=== PATIENT | male | born 1950 | race Caucasian/White ===

== ENCOUNTER 2018-09-28 15:53 | Emergency (ER) | payer MEDICARE, SELFPAY ==
[~2018-09-28] VITALS: Ht 172.7 cm; Wt 74.0 kg
[~2018-09-28 15:53] MED LIST: ADV50500 IH; ALBU18HF2 IH; ALBU2.5V13 NEB; ALBU8.5H8 INH; COMIN IH; FLO0.4C PO; ONDA4TAB59 PO; PRED1TAB PO; PRED20TA PO; SPIIN INH; ZOLP5TAB8 PO
[2018-09-28 16:00] VITALS: BP 144/98
[2018-09-28] MEDS ORDERED: HYDROcodone/acetaminophen 10/325mg tab PO ONE (17:35)
[2018-09-28] MEDS ORDERED: ACYC-202 PO (17:43)
[2018-09-28] MEDS ORDERED: GABA-532 PO (17:43)
== END 2018-09-28 18:14 | disposition home or self-care (01) ==
LOC: ER 15:53
DX: B02.9 Zoster without complications (principal); K21.9 Gastro-esophageal reflux disease without esophagitis; J44.9 Chronic obstructive pulmonary disease, unspecified; Z90.49 Acquired absence of other specified parts of digestive tract; Z98.890 Other specified postprocedural states; Z59.0 Homelessness; Z79.2 Long term (current) use of antibiotics; Z79.899 Other long term (current) drug therapy
CPT/HCPCS: 99283

== ENCOUNTER 2018-12-02 01:03 | Emergency (ER) | payer MEDICARE ==
[~2018-12-02] VITALS: Ht 172.7 cm; Wt 60.0 kg
[~2018-12-02 01:03] MED LIST changes: +GABA-532 PO
[2018-12-02 02:02] LABS: ALANINE AMINOTRANSFERASE 13 U/L (12-78); ALBUMIN 3.2 G/DL (3.4-5.0); ALBUMIN/GLOBULIN RATIO 1.1 (1.1-1.5); ALKALINE PHOSPHATASE 71 IU/L (46-116); AMYLASE 57 U/L (25-115); ANION GAP 12 (8-16); ASPARTATE AMINO TRANSFERASE 10 U/L (10-37); BILIRUBIN,TOTAL 0.6 MG/DL (0.1-1.0); BLOOD UREA NITROGEN 19 MG/DL (7-18); BUN/CREATININE RATIO 16.2 (5.4-32.0); CALCIUM 8.5 MG/DL (8.5-10.1); CHLORIDE 109 MMOL/L (99-107); CREATININE 1.17 MG/DL (0.60-1.10); GLUCOSE 96 MG/DL (70-104); LIPASE 65 U/L (73-393); POTASSIUM 3.6 MMOL/L (3.5-5.1); SODIUM 142 MMOL/L (135-145); TOTAL CARBON DIOXIDE 21.4 MMOL/L (24-32); eGFR 62 ML/MIN
[2018-12-02] MEDS ORDERED: ondansetron/PF 4mg/2ml inj IV ONE ×2 (02:10→06:05)
[2018-12-02] MEDS ORDERED: normal saline 1000ML IV soln IVB ONE (02:10)
[2018-12-02] MEDS: morphine 4 MG/ML inj SYRINge IV PRN ×2 (02:16→04:09)
[2018-12-02 02:23] LABS: BASOPHILS # (AUTO) 0.1 X10'3 (0-0.2); BASOPHILS % (AUTO) 0.7 % (0-1); EOSINOPHILS % (AUTO) 0.1 % (0-6); HEMATOCRIT 44.3 % (42.0-52.0); HEMOGLOBIN 15.2 g/dl (14.0-17.9); LYMPHOCYTES # (AUTO) 2.3 X10'3 (1.1-4.8); LYMPHOCYTES % (AUTO) 16.5 % (21-51); MEAN CORPUSCULAR HEMOGLOBIN 31.3 PG (27.0-31.0); MEAN CORPUSCULAR HGB CONC 34.4 g/dL (33.0-36.5); MEAN PLATELET VOLUME 9.1 FL (7.4-10.4); MONOCYTES # (AUTO) 1.3 X10'3 (0-0.9); MONOCYTES % (AUTO) 8.8 % (2-12); NEUTROPHILS # (AUTO) 10.5 X10'3 (1.8-7.7); NEUTROPHILS % (AUTO) 73.9 % (42-75); PLATELET COUNT 240 X10'3 (140-440); RED BLOOD COUNT 4.87 X10'6 (4.70-6.10); WHITE BLOOD COUNT 14.2 X10'3 (4.5-11.0)
[2018-12-02 03:35] LABS: CLARITY,URINE SLIGHTLY CLOUDY (Clear); COLOR,URINE YELLOW (Yellow); GLUCOSE, URINE NEGATIVE (Neg); KETONES,URINE 40 mg/dl (Neg); LEUKOCYTE ESTERASE ,URINE NEGATIVE (Neg); NITRITES, URINE NEGATIVE (Neg); OCCULT BLOOD,URINE SMALL (Neg); PROTEIN,URINE NEGATIVE (Neg); UROBILINOGEN,URINE 0.2 E.U/dL (0.2-1.0)
[2018-12-02 03:36] LABS: UA COLLECTION TYPE VOIDED
[2018-12-02 03:45] LABS: BACTERIA,URINE NONE SEEN /HPF (Neg); CAL OXALATE CRYSTALS 3+ /HPF (NEGATIVE); MUCUS STRANDS MANY /LPF (Neg); RBC,URINE 0-2 /HPF (0-2); SQUAMOUS EPITHELIAL CELL,UR NONE SEEN /LPF (FEW); WBC,URINE NONE SEEN /HPF (0-4)
[2018-12-02] MEDS ORDERED: ketorolac trometh. 30mg/ml inj. IV ONE (04:25)
[2018-12-02] MEDS ORDERED: HYDR-4384 PO (04:30)
[2018-12-02] MEDS ORDERED: IBUP-1984 PO (04:30)
[2018-12-02] MEDS ORDERED: FLO0.4C PO (04:30)
[2018-12-02] MEDS ORDERED: morphine 4 MG/ML inj SYRINge IV ONE (04:50)
--- NOTE | 2018-12-02 06:14 | NUR ---
was transporting pt to lobby for discharge when patient started vommiting continuously. brought pt back to room and will notify md and oncoming nurse
[2018-12-02] MEDS ORDERED: ONDA4TAB6 PO (06:19)
[2018-12-02 06:24] VITALS: BP 165/98
== END 2018-12-02 06:40 | disposition home or self-care (01) ==
LOC: ER 01:03
DX: N20.0 Calculus of kidney (principal); J44.9 Chronic obstructive pulmonary disease, unspecified; K21.9 Gastro-esophageal reflux disease without esophagitis; Z90.49 Acquired absence of other specified parts of digestive tract; Z98.890 Other specified postprocedural states; Z59.0 Homelessness; Z79.899 Other long term (current) drug therapy
CPT/HCPCS: 36415; 74176; 80053; 81001; 82150; 83690; 85025; 85610; 96374; 96375; 96376; 99284; J1885; J2270; J2405; J7030

== ENCOUNTER 2018-12-06 17:48 | Emergency (ER) | payer MEDICARE ==
[~2018-12-06] VITALS: Ht 172.7 cm; Wt 72.7 kg
[~2018-12-06 17:48] MED LIST changes: +HYDR-4384 PO; +IBUP-1984 PO; +ONDA4TAB6 PO
[2018-12-06] MEDS ORDERED: morphine 4 MG/ML inj SYRINge IV PRN (18:00)
[2018-12-06] MEDS ORDERED: ondansetron/PF 4mg/2ml inj IV ONE (18:00)
[2018-12-06] MEDS ORDERED: normal saline 1000ML IV soln IVB ONE (18:00)
[2018-12-06 18:51] LABS: BASOPHILS # (AUTO) 0.1 X10'3 (0-0.2); BASOPHILS % (AUTO) 0.6 % (0-1); EOSINOPHILS % (AUTO) 0 % (0-6); HEMATOCRIT 45.4 % (42.0-52.0); HEMOGLOBIN 15.9 g/dl (14.0-17.9); LYMPHOCYTES # (AUTO) 1.1 X10'3 (1.1-4.8); LYMPHOCYTES % (AUTO) 10.7 % (21-51); MEAN CORPUSCULAR HEMOGLOBIN 31.8 PG (27.0-31.0); MEAN CORPUSCULAR HGB CONC 35.1 g/dL (33.0-36.5); MEAN CORPUSCULAR VOLUME 90.5 FL (78-98); MEAN PLATELET VOLUME 8.2 FL (7.4-10.4); MONOCYTES # (AUTO) 0.9 X10'3 (0-0.9); MONOCYTES % (AUTO) 9.2 % (2-12); NEUTROPHILS # (AUTO) 7.9 X10'3 (1.8-7.7); NEUTROPHILS % (AUTO) 79.5 % (42-75); PLATELET COUNT 245 X10'3 (140-440); RED BLOOD COUNT 5.02 X10'6 (4.70-6.10)
[2018-12-06 19:03] LABS: ALANINE AMINOTRANSFERASE 19 U/L (12-78); ALBUMIN 3.5 G/DL (3.4-5.0); ALKALINE PHOSPHATASE 75 IU/L (46-116); ANION GAP 12 (8-16); ASPARTATE AMINO TRANSFERASE 19 U/L (10-37); BILIRUBIN,TOTAL 0.7 MG/DL (0.1-1.0); BLOOD UREA NITROGEN 16 MG/DL (7-18); BUN/CREATININE RATIO 11.9 (5.4-32.0); CALCIUM 9.6 MG/DL (8.5-10.1); CHLORIDE 102 MMOL/L (99-107); CREATININE 1.35 MG/DL (0.60-1.10); GLUCOSE 107 MG/DL (70-104); POTASSIUM 3.7 MMOL/L (3.5-5.1); SODIUM 137 MMOL/L (135-145); TOTAL CARBON DIOXIDE 23.5 MMOL/L (24-32); eGFR 52 ML/MIN
[2018-12-06 20:29] LABS: CLARITY,URINE CLOUDY (Clear); COLOR,URINE AMBER (Yellow); GLUCOSE, URINE NEGATIVE (Neg); KETONES,URINE >=80 mg/dl (Neg); LEUKOCYTE ESTERASE ,URINE NEGATIVE (Neg); NITRITES, URINE NEGATIVE (Neg); OCCULT BLOOD,URINE LARGE (Neg); PROTEIN,URINE TRACE mg/dl (Neg)
[2018-12-06 20:36] LABS: UA COLLECTION TYPE STRAIGHT CATH
[2018-12-06 20:39] LABS: BACTERIA,URINE 1+ /HPF (Neg); MUCUS STRANDS FEW /LPF (Neg); RBC,URINE 50-100 /HPF (0-2); SQUAMOUS EPITHELIAL CELL,UR MODERATE /LPF (FEW); TRANSITIONAL EPI CELLS,URINE FEW /HPF; WBC,URINE 0-4 /HPF (0-4)
[2018-12-06 20:40] LABS: RENAL CELLS, URINE FEW /HPF
[2018-12-06] MEDS ORDERED: PER10325T PO (20:49)
[2018-12-06] MEDS ORDERED: oxyCODONE/APAP 10/325mg tablet PO ONE (20:55)
[2018-12-06 21:12] VITALS: BP 152/96
== END 2018-12-06 21:13 | disposition home or self-care (01) ==
LOC: ER 17:49
DX: N20.1 Calculus of ureter (principal); J44.9 Chronic obstructive pulmonary disease, unspecified; K21.9 Gastro-esophageal reflux disease without esophagitis; Z59.0 Homelessness; Z90.49 Acquired absence of other specified parts of digestive tract; Z79.899 Other long term (current) drug therapy
CPT/HCPCS: 36415; 80053; 81001; 85025; 96374; 96375; 99284; J2270; J2405; J7030; P9612

== ENCOUNTER 2020-01-13 10:39 | Inpatient (IN) | payer MEDICARE ==
[~2020-01-13] VITALS: Ht 172.7 cm; Wt 77.3 kg
[~2020-01-13 10:39] MED LIST changes: -HYDR-4384 PO; -IBUP-1984 PO
[2020-01-13] MEDS ORDERED: morphine 4 MG/ML inj SYRINge IM ONE ×2 (11:05→11:45)
[2020-01-13] MEDS ORDERED: HYDROcodone/acetaminophen 10/325mg tab PO ONE (11:05)
[2020-01-13] MEDS ORDERED: ondansetron/PF 4mg/2ml inj IV ONE ×2 (12:15→14:35)
[2020-01-13] MEDS ORDERED: albuterol 2.5 MG/3 ML nebule NEB ONE (12:15)
[2020-01-13 12:53] LABS: BASOPHILS # (AUTO) 0.1 X10'3 (0-0.2); BASOPHILS % (AUTO) 1.1 % (0-1); EOSINOPHILS % (AUTO) 0.2 % (0-6); HEMATOCRIT 48.6 % (42.0-52.0); HEMOGLOBIN 16.4 g/dl (14.0-17.9); LYMPHOCYTES # (AUTO) 2.8 X10'3 (1.1-4.8); LYMPHOCYTES % (AUTO) 24.4 % (21-51); MEAN CORPUSCULAR HEMOGLOBIN 30.1 PG (27.0-31.0); MEAN CORPUSCULAR HGB CONC 33.7 g/dL (33.0-36.5); MEAN CORPUSCULAR VOLUME 89.4 FL (78-98); MEAN PLATELET VOLUME 8.5 FL (7.4-10.4); MONOCYTES # (AUTO) 0.9 X10'3 (0-0.9); MONOCYTES % (AUTO) 7.7 % (2-12); NEUTROPHILS # (AUTO) 7.6 X10'3 (1.8-7.7); NEUTROPHILS % (AUTO) 66.6 % (42-75); PLATELET COUNT 250 X10'3 (140-440); RED BLOOD COUNT 5.43 X10'6 (4.70-6.10); RED CELL DISTRIBUTION WIDTH 14.3 % (11.5-14.5); WHITE BLOOD COUNT 11.4 X10'3 (4.5-11.0)
[2020-01-13 13:04] LABS: ALANINE AMINOTRANSFERASE 20 U/L (12-78); ALBUMIN 3.5 G/DL (3.4-5.0); ALKALINE PHOSPHATASE 185 IU/L (46-116); ANION GAP 12 (8-16); ASPARTATE AMINO TRANSFERASE 21 U/L (10-37); BILIRUBIN,TOTAL 1.2 MG/DL (0.1-1.0); BLOOD UREA NITROGEN 26 MG/DL (7-18); BUN/CREATININE RATIO 18.2 (5.4-32.0); CALCIUM 9.5 MG/DL (8.5-10.1); CHLORIDE 107 MMOL/L (99-107); CREATININE 1.43 MG/DL (0.60-1.10); GLUCOSE 109 MG/DL (70-104); LIPASE < 50 U/L (73-393); POTASSIUM 3.4 MMOL/L (3.5-5.1); SODIUM 139 MMOL/L (135-145); TOTAL CARBON DIOXIDE 19.8 MMOL/L (24-32); TOTAL PROTEIN 6.9 G/DL (6.4-8.2); eGFR 49 ML/MIN
[2020-01-13] MEDS ORDERED: normal saline 1000ML IV soln IVB ONE (13:10)
--- NOTE | 2020-01-13 14:34 | NUR ---
Dr. paiz at bedside.
[2020-01-13] MEDS ORDERED: magnesium hydroxide 30ml (MOM) UD suspension PO PRN ×2 (14:40→14:50)
[2020-01-13] MEDS ORDERED: acetaminophen 325mg tablet PO PRN ×2 (14:40)
[2020-01-13] MEDS ORDERED: morphine 2 MG/ML inj. syringe IV PRN (14:40)
[2020-01-13] MEDS ORDERED: mag hydrox/Alum hydrox/simeth 30ml oral suspension PO PRN (14:40)
[2020-01-13] MEDS ORDERED: HYDROcodone/acetaminophen 5mg/325mg tablet PO PRN (14:40)
[2020-01-13] MEDS ORDERED: CHOL20002 PO (14:55)
[2020-01-13] MEDS ORDERED: CYAN-51 PO (14:55)
[2020-01-13] MEDS ORDERED: PRE5T PO (14:58)
--- NOTE | 2020-01-13 15:40 | NUR ---
received report from brush maker machine
--- NOTE | 2020-01-13 17:06 | NUR ---
sent a page to hospitalist to address pt low k and elevated blood pressure, no new orders at this time, continue to monitor
[2020-01-13 17:18] VITALS: BP 190/109
[2020-01-13] MEDS ORDERED: potassium CL 10mEq/100ml bag 100 ML IV PRN ×2 (17:25)
[2020-01-13] MEDS ORDERED: potassium Cl 20 mEq SR tablet PO PRN ×2 (17:25)
[2020-01-13] MEDS: ondansetron/PF 4mg/2ml inj IV PRN ×2 (17:38→23:17)
[2020-01-13] MEDS: baclofen 10mg tablet PO PRN (17:44)
[2020-01-13 18:00] VITALS: BP 178/116
--- NOTE | 2020-01-13 18:14 | NUR ---
gave report to june,
[2020-01-13] MEDS: sennosides/docusate sodium tablet PO SCH (20:00)
[2020-01-13] MEDS: K and/or MAG REPLACEMENT MC SCH (20:00)
[2020-01-13] MEDS: HYDROcodone/acetaminophen 10/325mg tab PO PRN (22:43)
[2020-01-13] MEDS: ipratropium/albuterol 3ml nebule NEB PRN (23:32)
[2020-01-14] MEDS: HYDROcodone/acetaminophen 10/325mg tab PO PRN (05:36)
--- NOTE | 2020-01-14 06:00 | NUR ---
Patient in room [facility]TH[facility] 4023. I have received report from June and had the opportunity to ask questions and assume patient care.
[2020-01-14 06:28] LABS: BASOPHILS % (AUTO) 0.6 % (0-1); EOSINOPHILS % (AUTO) 0.3 % (0-6); HEMATOCRIT 46.8 % (42.0-52.0); LYMPHOCYTES # (AUTO) 1.6 X10'3 (1.1-4.8); LYMPHOCYTES % (AUTO) 21.5 % (21-51); MEAN CORPUSCULAR HEMOGLOBIN 30.8 PG (27.0-31.0); MEAN CORPUSCULAR HGB CONC 34.1 g/dL (33.0-36.5); MEAN CORPUSCULAR VOLUME 90.1 FL (78-98); MEAN PLATELET VOLUME 8.2 FL (7.4-10.4); MONOCYTES # (AUTO) 0.8 X10'3 (0-0.9); MONOCYTES % (AUTO) 10.4 % (2-12); NEUTROPHILS # (AUTO) 5.1 X10'3 (1.8-7.7); NEUTROPHILS % (AUTO) 67.2 % (42-75); PLATELET COUNT 219 X10'3 (140-440); RED BLOOD COUNT 5.19 X10'6 (4.70-6.10); RED CELL DISTRIBUTION WIDTH 14.2 % (11.5-14.5); WHITE BLOOD COUNT 7.5 X10'3 (4.5-11.0)
[2020-01-14 06:44] LABS: ALBUMIN 3.3 G/DL (3.4-5.0); ANION GAP 14 (8-16); BLOOD UREA NITROGEN 25 MG/DL (7-18); BUN/CREATININE RATIO 16.7 (5.4-32.0); CALCIUM 9.2 MG/DL (8.5-10.1); CHLORIDE 105 MMOL/L (99-107); GLUCOSE 88 MG/DL (70-104); POTASSIUM 3.9 MMOL/L (3.5-5.1); SODIUM 141 MMOL/L (135-145); TOTAL CARBON DIOXIDE 22.3 MMOL/L (24-32); eGFR 46 ML/MIN
[2020-01-14 07:11] VITALS: BP_SYST 139; BP_SYST 172; BP_DIAS 103; BP_DIAS 124
[2020-01-14] MEDS: enoxaparin 40mg/0.4ml syringe SUBCUT SCH (08:00)
[2020-01-14] MEDS: K and/or MAG REPLACEMENT MC SCH ×2 (08:00→20:00)
[2020-01-14] MEDS ORDERED: predniSONE 5mg tablet PO SCH ×2 (08:00→10:45)
[2020-01-14] MEDS: sennosides/docusate sodium tablet PO SCH ×2 (08:26→19:07)
[2020-01-14] MEDS: ondansetron/PF 4mg/2ml inj IV PRN ×2 (08:34→19:07)
[2020-01-14] MEDS: ipratropium/albuterol 3ml nebule NEB PRN (08:47)
[2020-01-14 10:00] VITALS: BP 143/107
--- NOTE | 2020-01-14 10:08 | NUR ---
Page Sent promotional table spacer PAGER ID: [phone] MESSAGE: [phone] Trent Jacob Pt is still having COPD trouble on 5L O2 at 82 after RT saw him. Since pt is nauseous and threw up am prednisone would IV solumedrol order help? #[id number] Julieth
[2020-01-14] MEDS: ipratropium/albuterol 3ml nebule NEB SCH ×2 (11:10→14:32)
[2020-01-14] MEDS: LORazepam 2 mg/ml vial IV PRN (13:05)
[2020-01-14 18:00] VITALS: BP 127/99
--- NOTE | 2020-01-14 18:20 | NUR ---
Patient in room ORTH[facility] 4023. I have received report from EVERT Clancy and had the opportunity to ask questions and assume patient care.
--- NOTE | 2020-01-14 18:22 | NUR ---
Problems reprioritized. Patient report given, questions answered & plan of care reviewed with Vicky LOYD.
[2020-01-14] MEDS: morphine 2 MG/ML inj. syringe IV PRN (19:08)
[2020-01-14 22:00] VITALS: BP 149/103
[2020-01-15] MEDS: morphine 2 MG/ML inj. syringe IV PRN (01:14)
[2020-01-15] MEDS: ondansetron/PF 4mg/2ml inj IV PRN (01:14)
--- NOTE | 2020-01-15 06:27 | NUR ---
Problems reprioritized. Patient report given, questions answered & plan of care reviewed with EVERT Clancy.
[2020-01-15 06:30] VITALS: BP 126/98
--- NOTE | 2020-01-15 06:54 | NUR ---
Patient in room [facility]TH[facility] 4023 B. I have received report from Vicky and had the opportunity to ask questions and assume patient care.
[2020-01-15] MEDS: ipratropium/albuterol 3ml nebule NEB PRN ×3 (07:34→19:56)
[2020-01-15 07:56] LABS: BASOPHILS % (AUTO) 0.5 % (0-1); EOSINOPHILS % (AUTO) 0.3 % (0-6); HEMATOCRIT 49.2 % (42.0-52.0); HEMOGLOBIN 16.7 g/dl (14.0-17.9); LYMPHOCYTES # (AUTO) 1.9 X10'3 (1.1-4.8); LYMPHOCYTES % (AUTO) 26.3 % (21-51); MEAN CORPUSCULAR HEMOGLOBIN 30.6 PG (27.0-31.0); MEAN CORPUSCULAR VOLUME 90.1 FL (78-98); MEAN PLATELET VOLUME 8.8 FL (7.4-10.4); MONOCYTES # (AUTO) 0.9 X10'3 (0-0.9); NEUTROPHILS # (AUTO) 4.2 X10'3 (1.8-7.7); NEUTROPHILS % (AUTO) 59.9 % (42-75); PLATELET COUNT 239 X10'3 (140-440); RED BLOOD COUNT 5.46 X10'6 (4.70-6.10); RED CELL DISTRIBUTION WIDTH 14.2 % (11.5-14.5); WHITE BLOOD COUNT 7.1 X10'3 (4.5-11.0)
[2020-01-15] MEDS: enoxaparin 40mg/0.4ml syringe SUBCUT SCH (08:00)
[2020-01-15] MEDS: sennosides/docusate sodium tablet PO SCH ×2 (08:00→19:26)
[2020-01-15] MEDS: K and/or MAG REPLACEMENT MC SCH ×2 (08:00→20:00)
--- NOTE | 2020-01-15 08:02 | NUR ---
PAGER ID: [phone] MESSAGE: [phone] Trent Jacob RT now hears crackles now in right base yesterday they didn't can we get a chest xray. #[id number] Julieth (116 character message out of a maximum of 240) Close [X] Send Another Page
[2020-01-15] MEDS ORDERED: albuterol 2.5 MG/3 ML nebule NEB PRN (08:05)
[2020-01-15 08:13] LABS: ALBUMIN 3.2 G/DL (3.4-5.0); ANION GAP 16 (8-16); BLOOD UREA NITROGEN 32 MG/DL (7-18); BUN/CREATININE RATIO 18.6 (5.4-32.0); CALCIUM 9.6 MG/DL (8.5-10.1); CHLORIDE 104 MMOL/L (99-107); CREATININE 1.72 MG/DL (0.60-1.10); GLUCOSE 93 MG/DL (70-104); POTASSIUM 4.1 MMOL/L (3.5-5.1); SODIUM 139 MMOL/L (135-145); TOTAL CARBON DIOXIDE 19.5 MMOL/L (24-32); eGFR 40 ML/MIN
[2020-01-15] MEDS ORDERED: bisacodyl 10mg suppository rectal RC PRN (09:05)
[2020-01-15] MEDS ORDERED: oxyCODONE/APAP 5-325mg tablet PO ONE (09:05)
[2020-01-15 09:15] VITALS: BP 140/109
[2020-01-15] MEDS: metoclopramide 5 mg/ml inj IV PRN ×2 (09:57→22:04)
[2020-01-15] MEDS: methylPREDNISolone sod succ/PF 40mg inj. IV SCH ×2 (09:58→23:11)
--- NOTE | 2020-01-15 11:37 | NUR ---
Student documentation: I have reviewed and agree with all interventions, assessments performed and documented by Trent Jacobs.
--- NOTE | 2020-01-15 12:02 | NUR ---
Problems reprioritized. Patient report given,Julieth LOYD questions answered & plan of care reviewed with [].
--- NOTE | 2020-01-15 17:15 | NUR ---
promotional table spacer PAGER ID: [phone] MESSAGE: [phone] Trent Jacob Bp still different on each arm Left arm 140/109 Right Arm 126/98. #[id number] Julieth (104 character message out of a maximum of 240) Close [X]
[2020-01-15 18:00] VITALS: BP 124/100
[2020-01-15 22:00] VITALS: BP 133/105
[2020-01-15] MEDS: oxyCODONE/APAP 5-325mg tablet PO PRN (22:01)
[2020-01-16 06:00] VITALS: BP 143/99
--- NOTE | 2020-01-16 06:35 | NUR ---
Patient in room [facility]TH[facility] 4023. I have received report from Anila and had the opportunity to ask questions and assume patient care.
[2020-01-16] MEDS: oxyCODONE/APAP 5-325mg tablet PO PRN ×2 (06:38→19:10)
[2020-01-16 07:17] LABS: BASOPHILS % (AUTO) 0.5 % (0-1); EOSINOPHILS % (AUTO) 0.1 % (0-6); HEMATOCRIT 48.8 % (42.0-52.0); HEMOGLOBIN 16.6 g/dl (14.0-17.9); LYMPHOCYTES # (AUTO) 0.6 X10'3 (1.1-4.8); LYMPHOCYTES % (AUTO) 10.2 % (21-51); MEAN CORPUSCULAR HEMOGLOBIN 30.4 PG (27.0-31.0); MEAN CORPUSCULAR VOLUME 89.2 FL (78-98); MEAN PLATELET VOLUME 8.7 FL (7.4-10.4); MONOCYTES # (AUTO) 0.3 X10'3 (0-0.9); MONOCYTES % (AUTO) 5.5 % (2-12); NEUTROPHILS # (AUTO) 4.8 X10'3 (1.8-7.7); NEUTROPHILS % (AUTO) 83.7 % (42-75); PLATELET COUNT 226 X10'3 (140-440); RED BLOOD COUNT 5.47 X10'6 (4.70-6.10); RED CELL DISTRIBUTION WIDTH 14.4 % (11.5-14.5); WHITE BLOOD COUNT 5.8 X10'3 (4.5-11.0)
[2020-01-16 07:24] LABS: ALBUMIN 3.1 G/DL (3.4-5.0); ANION GAP 12 (8-16); BLOOD UREA NITROGEN 43 MG/DL (7-18); CALCIUM 9.7 MG/DL (8.5-10.1); CHLORIDE 106 MMOL/L (99-107); CREATININE 1.59 MG/DL (0.60-1.10); GLUCOSE 139 MG/DL (70-104); POTASSIUM 4.6 MMOL/L (3.5-5.1); SODIUM 142 MMOL/L (135-145); TOTAL CARBON DIOXIDE 23.9 MMOL/L (24-32); eGFR 43 ML/MIN
[2020-01-16] MEDS: K and/or MAG REPLACEMENT MC SCH ×2 (08:00→20:00)
[2020-01-16] MEDS: metoclopramide 5 mg/ml inj IV PRN (08:47)
[2020-01-16] MEDS: enoxaparin 40mg/0.4ml syringe SUBCUT SCH (08:54)
[2020-01-16] MEDS: sennosides/docusate sodium tablet PO SCH ×2 (08:54→19:11)
[2020-01-16] MEDS: furosemide 20 MG/2 ML vial IV SCH (08:56)
[2020-01-16] MEDS: methylPREDNISolone sod succ/PF 40mg inj. IV SCH ×2 (08:56→16:30)
[2020-01-16 10:00] VITALS: BP 159/107
[2020-01-16] MEDS: metoclopramide 5 mg/ml inj IV SCH ×2 (15:29→19:11)
[2020-01-16] MEDS: morphine 2 MG/ML inj. syringe IV PRN (15:30)
[2020-01-16 18:00] VITALS: BP 149/111
[2020-01-16] MEDS ORDERED: methylnaltrexone br 12mg/0.6ml inj***SubQ only SQ ONE (18:00)
--- NOTE | 2020-01-16 18:18 | NUR ---
Problems reprioritized. Patient report given, questions answered & plan of care reviewed with
[2020-01-16 22:00] VITALS: BP 143/104
[2020-01-17] MEDS: methylPREDNISolone sod succ/PF 40mg inj. IV SCH ×3 (00:07→15:45)
[2020-01-17] MEDS: oxyCODONE/APAP 5-325mg tablet PO PRN ×2 (00:13→06:00)
[2020-01-17] MEDS: metoclopramide 5 mg/ml inj IV SCH ×4 (02:51→19:47)
--- NOTE | 2020-01-17 06:43 | NUR ---
Problems reprioritized. Patient report given, questions answered & plan of care reviewed with EVERT REYES.
[2020-01-17 06:56] VITALS: BP 147/103
[2020-01-17] MEDS: K and/or MAG REPLACEMENT MC SCH ×2 (08:00→19:41)
[2020-01-17 08:21] LABS: BASOPHILS % (AUTO) 0.4 % (0-1); EOSINOPHILS % (AUTO) 0 % (0-6); HEMATOCRIT 48.2 % (42.0-52.0); HEMOGLOBIN 16.2 g/dl (14.0-17.9); LYMPHOCYTES # (AUTO) 0.4 X10'3 (1.1-4.8); LYMPHOCYTES % (AUTO) 5.4 % (21-51); MEAN CORPUSCULAR HEMOGLOBIN 30.3 PG (27.0-31.0); MEAN CORPUSCULAR HGB CONC 33.6 g/dL (33.0-36.5); MEAN CORPUSCULAR VOLUME 90.1 FL (78-98); MEAN PLATELET VOLUME 9.1 FL (7.4-10.4); MONOCYTES # (AUTO) 0.4 X10'3 (0-0.9); MONOCYTES % (AUTO) 5.1 % (2-12); NEUTROPHILS # (AUTO) 6.4 X10'3 (1.8-7.7); NEUTROPHILS % (AUTO) 89.1 % (42-75); PLATELET COUNT 238 X10'3 (140-440); RED BLOOD COUNT 5.35 X10'6 (4.70-6.10); RED CELL DISTRIBUTION WIDTH 14.3 % (11.5-14.5); WHITE BLOOD COUNT 7.2 X10'3 (4.5-11.0)
[2020-01-17 08:50] LABS: ALBUMIN 3.3 G/DL (3.4-5.0); ANION GAP 11 (8-16); BLOOD UREA NITROGEN 64 MG/DL (7-18); BUN/CREATININE RATIO 37.2 (5.4-32.0); CALCIUM 9.9 MG/DL (8.5-10.1); CHLORIDE 106 MMOL/L (99-107); CREATININE 1.72 MG/DL (0.60-1.10); GLUCOSE 112 MG/DL (70-104); POTASSIUM 4.3 MMOL/L (3.5-5.1); SODIUM 143 MMOL/L (135-145); TOTAL CARBON DIOXIDE 25.6 MMOL/L (24-32); eGFR 40 ML/MIN
[2020-01-17] MEDS: furosemide 20 MG/2 ML vial IV SCH (08:58)
[2020-01-17] MEDS: sennosides/docusate sodium tablet PO SCH ×2 (08:59→19:46)
[2020-01-17] MEDS: enoxaparin 40mg/0.4ml syringe SUBCUT SCH (09:00)
[2020-01-17] MEDS: lisinopril 5mg tablet PO SCH ×2 (09:00→19:47)
[2020-01-17] MEDS: LORazepam 2 mg/ml vial IV PRN (09:11)
[2020-01-17] MEDS: ipratropium/albuterol 3ml nebule NEB PRN ×2 (09:31→14:05)
[2020-01-17] MEDS ORDERED: FLU VACC QS2020-21(6MOS UP)/PF 60 MCG/0.5 ML SYRINGE IMVAC ONE (10:00)
--- NOTE | 2020-01-17 11:35 | NUR ---
Order received for IS from Dr Knight.
[2020-01-17] MEDS: baclofen 10mg tablet PO PRN (13:36)
--- NOTE | 2020-01-17 17:55 | NUR ---
I have reviewed and agree with all medications administered and interventions performed by [facility] Student Tiffanie Matos.
[2020-01-17 18:00] VITALS: BP 137/95
--- NOTE | 2020-01-17 18:58 | NUR ---
called report to Jaime - spoke with EVERT Perez.
[2020-01-17 19:47] VITALS: BP_SYST 137
--- NOTE | 2020-01-17 21:30 | NUR ---
I called Jaime after talking to [facility], to notify them that we are waiting on [facility] to arrive to transport patient to their facility.
== END 2020-01-17 22:50 | DRG 542 ==
LOC: ER 10:39 → ED HOLD 14:39 → EDBEDREQ 15:16 → ORTHO 4S 16:45
PROVIDERS: ADMIT Internal Medicine; ATTEND Internal Medicine
DX: M80.88XA Other osteoporosis with current pathological fracture, vertebra(e), initial encounter for fracture (principal); J96.21 Acute and chronic respiratory failure with hypoxia; J44.1 Chronic obstructive pulmonary disease with (acute) exacerbation; K76.89 Other specified diseases of liver; N18.30 Chronic kidney disease, stage 3 unspecified; I50.813 Acute on chronic right heart failure; I27.81 Cor pulmonale (chronic); F17.210 Nicotine dependence, cigarettes, uncomplicated; X58.XXXA Exposure to other specified factors, initial encounter; K21.9 Gastro-esophageal reflux disease without esophagitis; F41.9 Anxiety disorder, unspecified; G89.29 Other chronic pain; K59.00 Constipation, unspecified; Z59.0 Homelessness; Z79.52 Long term (current) use of systemic steroids; Z87.442 Personal history of urinary calculi; Z90.49 Acquired absence of other specified parts of digestive tract; Z79.899 Other long term (current) drug therapy; Y93.89 Activity, other specified; Y92.89 Other specified places as the place of occurrence of the external cause; Y99.8 Other external cause status; Z23 Encounter for immunization; R03.0 Elevated blood-pressure reading, without diagnosis of hypertension
CPT/HCPCS: 36415; 72100; 74176; 80048; 80053; 83690; 83880; 85025; 87081; 93930; 94640; 94760; 96372; 96374; 96376; 97110; 97116; 97161; 97530; 97535; 99285; G0378; J1650; J1940; J2060; J2270; J2405; J2765; J2920; J7030; J7512; Q2039

== ENCOUNTER 2020-12-02 13:28 | Emergency (ER) | payer MEDICARE, SELFPAY ==
[~2020-12-02] VITALS: Ht 170.2 cm; Wt 68.2 kg
[~2020-12-02 13:28] MED LIST changes: -ADV50500 IH; -ALBU18HF2 IH; -ALBU2.5V13 NEB; +ALBU8.5H17 INH; -ALBU8.5H8 INH; +CHOL20002 PO; -COMIN IH; +CYAN-51 PO; -FLO0.4C PO; -GABA-532 PO; -ONDA4TAB59 PO; -ONDA4TAB6 PO; +PRE5T PO; -PRED1TAB PO; -PRED20TA PO; -ZOLP5TAB8 PO
[2020-12-02] MEDS ORDERED: HYDROcodone/acetaminophen 5mg/325mg tablet PO ONE (14:45)
[2020-12-02] MEDS ORDERED: ondansetron 4mg rapidly disintigrating tab PO ONE (14:45)
[2020-12-02 14:56] LABS: BASOPHILS # (AUTO) 0.1 X10'3 (0-0.2); EOSINOPHILS % (AUTO) 0.2 % (0-6); HEMATOCRIT 43.1 % (42.0-52.0); HEMOGLOBIN 14.5 g/dl (14.0-17.9); LYMPHOCYTES % (AUTO) 20.4 % (21-51); MEAN CORPUSCULAR HEMOGLOBIN 31.3 PG (27.0-31.0); MEAN CORPUSCULAR HGB CONC 33.7 g/dL (33.0-36.5); MEAN CORPUSCULAR VOLUME 92.9 FL (78-98); MONOCYTES % (AUTO) 10.2 % (2-12); NEUTROPHILS # (AUTO) 6.6 X10'3 (1.8-7.7); NEUTROPHILS % (AUTO) 68.2 % (42-75); PLATELET COUNT 269 X10'3 (140-440); RED BLOOD COUNT 4.64 X10'6 (4.70-6.10); RED CELL DISTRIBUTION WIDTH 14.1 % (11.5-14.5); WHITE BLOOD COUNT 9.7 X10'3 (4.5-11.0)
[2020-12-02 15:08] LABS: ALANINE AMINOTRANSFERASE 17 U/L (12-78); ALBUMIN 3.1 G/DL (3.4-5.0); ALKALINE PHOSPHATASE 110 IU/L (46-116); ANION GAP 12 (8-16); ASPARTATE AMINO TRANSFERASE 12 U/L (10-37); BILIRUBIN,TOTAL 0.7 MG/DL (0.1-1.0); BLOOD UREA NITROGEN 38 MG/DL (7-18); BUN/CREATININE RATIO 29.9 (5.4-32.0); CALCIUM 8.7 MG/DL (8.5-10.1); CHLORIDE 108 MMOL/L (99-107); CREATININE 1.27 MG/DL (0.60-1.10); GLUCOSE 85 MG/DL (70-104); LIPASE 89 U/L (73-393); MAGNESIUM 2.3 MG/DL (1.5-2.4); POTASSIUM 3.9 MMOL/L (3.5-5.1); SODIUM 145 MMOL/L (135-145); TOTAL CARBON DIOXIDE 25.5 MMOL/L (24-32); TOTAL PROTEIN 6.3 G/DL (6.4-8.2); eGFR 56 ML/MIN
--- NOTE | 2020-12-02 15:24 | NUR ---
pt to ct scan.
[2020-12-02] MEDS ORDERED: CLINDAMYCIN 300mg/NS 50ml IVPB 50 ML IV ONE (16:00)
[2020-12-02] MEDS ORDERED: normal saline 1000ml 1,000 ML IV ONE (16:05)
[2020-12-02] MEDS ORDERED: pantoprazole 40 MG vial IV ONE (16:10)
[2020-12-02 17:30] LABS: CLARITY,URINE CLOUDY (Clear); COLOR,URINE YELLOW (Yellow); UA COLLECTION TYPE VOIDED
[2020-12-02 17:31] LABS: GLUCOSE, URINE NEGATIVE (Neg); KETONES,URINE 15 mg/dl (Neg); PROTEIN,URINE 30 mg/dl (Neg)
[2020-12-02 17:32] LABS: LEUKOCYTE ESTERASE ,URINE NEGATIVE (Neg); NITRITES, URINE NEGATIVE (Neg); OCCULT BLOOD,URINE TRACE-LYSED (Neg); UROBILINOGEN,URINE 0.2 E.U/dL (0.2-1.0)
[2020-12-02 17:53] LABS: RBC,URINE 0-2 /HPF (0-2); WBC,URINE 0-4 /HPF (0-4)
[2020-12-02 17:54] LABS: BACTERIA,URINE NONE SEEN /HPF (Neg); HYALINE CASTS 0-3 /LPF (NEGATIVE); MUCUS STRANDS MANY /LPF (Neg); SQUAMOUS EPITHELIAL CELL,UR NONE SEEN /LPF (FEW)
[2020-12-02] MEDS ORDERED: PANT-47 PO (18:30)
[2020-12-02 19:00] VITALS: BP 113/77
[2020-12-11 12:31] LABS: OCCULT BLOOD STOOL NEGATIVE (Neg)
== END 2020-12-02 18:52 | disposition home or self-care (01) ==
LOC: ER 13:29
DX: R19.7 Diarrhea, unspecified (principal); R10.84 Generalized abdominal pain; R06.02 Shortness of breath; M25.521 Pain in right elbow; J44.9 Chronic obstructive pulmonary disease, unspecified; K21.9 Gastro-esophageal reflux disease without esophagitis; G89.29 Other chronic pain; Z87.442 Personal history of urinary calculi; Z90.49 Acquired absence of other specified parts of digestive tract; Z79.899 Other long term (current) drug therapy
CPT/HCPCS: 36415; 71045; 74176; 80053; 81001; 83690; 83735; 85025; 96365; 96375; 99285; C9113; J7030; 82272; 93005; J3490